=== PATIENT | male | born 1980 | race Caucasian/White ===

== ENCOUNTER 2017-02-19 19:15 | Inpatient (IN) | payer OTHER ==
[2017-02-19 19:55] VITALS: BMI 25.8
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
[2017-02-19] MEDS ORDERED: MENTHOL/PHENOL 1 EACH UD MM PRN (20:30)
[2017-02-19] MEDS ORDERED: IBUPROFEN 400 MG TABLET (FP) PO PRN (20:30)
[2017-02-19] MEDS ORDERED: MAGNESIUM CITRATE 300 ML BOTTLE PO PRN (20:30)
[2017-02-19] MEDS ORDERED: MAG HYDROX/AL HYDROX/SIMETH 30 ML UNIT-DOSE CUP PO PRN (20:30)
[2017-02-19] MEDS ORDERED: chlordiazePOXIDE HCL 25 MG CAPSULE PO PRN (20:30)
[2017-02-19] MEDS ORDERED: NICOTINE POLACRILEX 2 MG GUM BC PRN (20:30)
[2017-02-19] MEDS ORDERED: LOPERAMIDE HCL 2 MG CAPSULE PO PRN (20:30)
[2017-02-19] MEDS ORDERED: guaiFENesin/D-METHORPHAN HB 10 ML UNIT-DOSE CUPS PO PRN (20:30)
[2017-02-19] MEDS ORDERED: ACETAMINOPHEN 325 MG TABLET (FP) PO PRN (20:30)
[2017-02-19] MEDS ORDERED: MAGNESIUM HYDROX 2400MG/30ML ORAL SUSPENSION 30 ML CUP PO PRN (20:30)
[2017-02-19] MEDS ORDERED: P-EPHED 60MG/TRIPROLIDI 2.5MG TABLET PO PRN (20:30)
[2017-02-19] MEDS ORDERED: hydrOXYzine PAMOATE 50 MG CAPSULE (FP) PO PRN (20:30)
[2017-02-19] MEDS: chlordiazePOXIDE HCL 25 MG CAPSULE PO SCH (22:00)
[2017-02-19] MEDS: THIAMINE HCL 100 MG TABLET (FP) PO SCH (22:19)
[2017-02-19 23:22] LABS: URINE APPEARANCE CLEAR; URINE BILIRUBIN NEGATIVE (NEGATIVE); URINE BLOOD NEGATIVE (NEGATIVE); URINE COLOR YELLOW; URINE GLUCOSE (UA) NEGATIVE (NEGATIVE); URINE KETONE NEGATIVE (NEGATIVE); URINE LEUK ESTERASE NEGATIVE (NEGATIVE); URINE NITRITE NEGATIVE (NEGATIVE); URINE UROBILINOGEN NEGATIVE E.U./dl (0.2-1.0)
[2017-02-19 23:23] LABS: URINE PROTEIN 1+ (NEGATIVE)
[2017-02-19 23:39] LABS: URINE MUCUS MODERATE; URINE RBC 4 /hpf (0-3); URINE WBC <1 /hpf (3-5)
[2017-02-20] MEDS: chlordiazePOXIDE HCL 25 MG CAPSULE PO SCH ×4 (05:30→22:25)
[2017-02-20 09:46] LABS: MCH 29.1 pg (25.7-33.7); MCHC 33.1 g/dl (32.0-35.9); PLATELET COUNT 210 K/MM3 (134-434)
--- NOTE | 2017-02-20 10:11 | EKG ---
Test Reason : Blood Pressure : / mmHG Vent. Rate : 078 BPM Atrial Rate : 078 BPM P-R Int : 142 ms QRS Dur : 108 ms QT Int : 402 ms P-R-T Axes : 048 062 038 degrees QTc Int : 458 ms SINUS RHYTHM WITH MARKED SINUS ARRHYTHMIA OTHERWISE NORMAL ECG NO PREVIOUS ECGS AVAILABLE Confirmed by ANN-MARIE WARE, SHERIDAN ([id number]) on 02/20/2017 10:10:59 AM Referred By: Angel Arguelles Confirmed By:SHERIDAN JACOBSEN MD
[2017-02-20 10:23] LABS: ALBUMIN 3.2 g/dl (3.4-5.0); ALK PHOS 97 U/L (45-117); ANION GAP 10 (8-16); BILIRUBIN,TOTAL 1.3 mg/dL (0.2-1.0); CALCIUM 8.5 mg/dL (8.5-10.1); CO2 27 mmol/L (21-32); CREATININE 0.9 mg/dL (0.7-1.3); GLUCOSE,RANDOM 91 mg/dL (74-106); SGOT/AST 22 U/L (15-37); SGPT/ALT 47 U/L (12-78); TOT PROT 6.3 g/dl (6.4-8.2)
[2017-02-20] MEDS: PRENATAL VITAMINS W/ FOLIC ACID TABLET (FP) PO SCH (10:39)
--- NOTE | 2017-02-20 11:04 | PN ---
S CIWA - CIWA Score Nausea/Vomitin-No Nausea/No Vomiting Muscle Tremors: 4-Moderate,w/Arms Extend Anxiety: 3 Agitation: 4-Moderately Restless Paroxysmal Sweats: 3 Orientation: 0-Oriented Tacttile Disturbances: 0-None Auditory Disturbances: 0-None Visual Disturbances: 0-None Headache: 1-Very Mild CIWA-Ar Total Score: 15 BHS Progress Note (SOAP) Subjective: sweats chills agitation interrupted sleep nausea Objective: 02/20/17 11:03 Vital Signs Temperature 95.9 F L 02/20/17 10:02 Pulse Rate 70 02/20/17 10:02 Respiratory Rate 18 02/20/17 10:02 Blood Pressure 158/75 02/20/17 10:02 O2 Sat by Pulse Oximetry (%) Laboratory Tests 02/19/17 02/20/17 02/20/17 21:25 07:00 07:00 WBC 7.0 RBC 4.67 Hgb 13.6 Hct 41.1 MCV 88.0 MCHC 33.1 RDW 15.0 Plt Count 210 MPV 10.0 Sodium 141 Potassium 3.9 Chloride 104 Carbon Dioxide 27 Anion Gap 10 BUN 15 Creatinine 0.9 Creat Clearance w eGFR > 60 Random Glucose 91 Calcium 8.5 Total Bilirubin 1.3 H AST 22 ALT 47 Alkaline Phosphatase 97 Total Protein 6.3 L Albumin 3.2 L Urine Color Yellow Urine Appearance Clear Urine pH 6.0 Ur Specific [place] 1.031 Urine Protein 1+ H Urine Glucose (UA) Negative Urine Ketones Negative Urine Blood Negative Urine Nitrite Negative Urine Bilirubin Negative Urine Urobilinogen Negative Ur Leukocyte Esterase Negative Urine RBC 4 Urine WBC <1 Ur Epithelial Cells Rare Urine Mucus Moderate awake/alert ambulating no acute distress Assessment: 02/20/17 11:03 withdrawal sx Plan: continue detox increase fluids
--- NOTE | 2017-02-20 13:22 | CONSULT ---
[facility] Psychiatric Consult - Data Date of interview: 02/20/17 Admission source: [facility] Identifying data: First admission to [facility] for this 36 y/o [place]-born male seeking detox treatment for alcohol dependence.Patient is single without children,domiciled and employed. Substance Abuse History: - Smoking Cessation. Smoking history: Former smoker. Have you smoked in the past 12 months: No. Initiated information on smoking cessation: No. - Substance & Tx. History. Hx Alcohol Use: Yes. Hx Substance Use: No. Substance Use Type: Alcohol. Hx Substance Use Treatment: No. - Substances Abused. BEER. Route: Oral. Frequency: 1-2 times per week. Amount used: 30 24 OZ CANS/ D. Age of first use: 18. Date of Last Use: . Confirmed by patient. Medical History: Patient endorses good general health. Psychiatric History: Patient denies. Physical/Sexual Abuse/Trauma History: Patient denies. Additional Comment: Drug Screen Negative: Yes.Noted. Mental Status Exam - Mental Status Exam Alert and Oriented to: Time, Place, Person Cognitive Function: Good Patient Appearance: Well Groomed Mood: Hopeful, Euthymic Affect: Appropriate, Normal Range Patient Behavior: Fatigued, Appropriate, Cooperative Speech Pattern: Clear, Appropriate (bilingual) Voice Loudness: Normal Thought Process: Intact, Goal Oriented Thought Disorder: Not Present Hallucinations: Denies Suicidal Ideation: Denies Homicidal Ideation: Denies Insight/Judgement: Fair Sleep: Well Appetite: Good Muscle strength/Tone: Normal Gait/Station: Normal Psychiatric Findings - Problem List ([place] 1, 2,3) (1) Alcohol dependence with uncomplicated withdrawal Current Visit: Yes Status: Acute - Initial Treatment Plan Initial Treatment Plan: Psychoeducation.Detoxification.Observation.
[2017-02-20] MEDS: diphenhydrAMINE HCL 50 MG CAPSULE PO PRN (22:25)
[2017-02-20] MEDS: THIAMINE HCL 100 MG TABLET (FP) PO SCH (22:26)
[2017-02-21] MEDS: chlordiazePOXIDE HCL 25 MG CAPSULE PO SCH ×3 (05:56→17:57)
--- NOTE | 2017-02-21 10:45 | PN ---
[facility] CIWA - CIWA Score Nausea/Vomitin-No Nausea/No Vomiting Muscle Tremors: 4-Moderate,w/Arms Extend Anxiety: 2 Agitation: 3 Paroxysmal Sweats: 3 Orientation: 0-Oriented Tacttile Disturbances: 0-None Auditory Disturbances: 0-None Visual Disturbances: 0-None Headache: 2-Mild CIWA-Ar Total Score: 14 S Progress Note (SOAP) Subjective: headache sweats interrupted sleep Objective: 02/21/17 10:41 Vital Signs Temperature 97.9 F 02/21/17 10:38 Pulse Rate 90 02/21/17 10:38 Respiratory Rate 16 02/21/17 10:38 Blood Pressure 127/68 02/21/17 10:38 O2 Sat by Pulse Oximetry (%) Laboratory Tests 02/19/17 02/20/17 02/20/17 21:25 07:00 07:00 WBC 7.0 RBC 4.67 Hgb 13.6 Hct 41.1 MCV 88.0 MCHC 33.1 RDW 15.0 Plt Count 210 MPV 10.0 Sodium 141 Potassium 3.9 Chloride 104 Carbon Dioxide 27 Anion Gap 10 BUN 15 Creatinine 0.9 Creat Clearance w eGFR > 60 Random Glucose 91 Calcium 8.5 Total Bilirubin 1.3 H AST 22 ALT 47 Alkaline Phosphatase 97 Total Protein 6.3 L Albumin 3.2 L Urine Color Yellow Urine Appearance Clear Urine pH 6.0 Ur Specific [place] 1.031 Urine Protein 1+ H Urine Glucose (UA) Negative Urine Ketones Negative Urine Blood Negative Urine Nitrite Negative Urine Bilirubin Negative Urine Urobilinogen Negative Ur Leukocyte Esterase Negative Urine RBC 4 Urine WBC <1 Ur Epithelial Cells Rare Urine Mucus Moderate RPR Titer 02/20/17 07:00 WBC RBC Hgb Hct MCV MCHC RDW Plt Count MPV Sodium Potassium Chloride Carbon Dioxide Anion Gap BUN Creatinine Creat Clearance w eGFR Random Glucose Calcium Total Bilirubin AST ALT Alkaline Phosphatase Total Protein Albumin Urine Color Urine Appearance Urine pH Ur Specific [place] Urine Protein Urine Glucose (UA) Urine Ketones Urine Blood Urine Nitrite Urine Bilirubin Urine Urobilinogen Ur Leukocyte Esterase Urine RBC Urine WBC Ur Epithelial Cells Urine Mucus RPR Titer Nonreactive awake/alert ambulating no acute distress Assessment: 02/21/17 10:44 withdrawal sx Plan: continue detox increase fluids motrin/tylenol prn
[2017-02-21] MEDS: PRENATAL VITAMINS W/ FOLIC ACID TABLET (FP) PO SCH (11:01)
[2017-02-21] MEDS: THIAMINE HCL 100 MG TABLET (FP) PO SCH (22:34)
[2017-02-21] MEDS: chlordiazePOXIDE 5 MG CAPSULE PO SCH (22:35)
[2017-02-21] MEDS: diphenhydrAMINE HCL 50 MG CAPSULE PO PRN (22:35)
[2017-02-22] MEDS: chlordiazePOXIDE 5 MG CAPSULE PO SCH ×3 (05:38→17:18)
[2017-02-22] MEDS: PRENATAL VITAMINS W/ FOLIC ACID TABLET (FP) PO SCH (10:49)
--- NOTE | 2017-02-22 11:21 | PN ---
BHS Progress Note (SOAP) Subjective: feeling better sweats Objective: 02/22/17 11:20 Vital Signs Temperature 98.2 F 02/22/17 10:15 Pulse Rate 85 02/22/17 10:15 Respiratory Rate 18 02/22/17 10:15 Blood Pressure 127/70 02/22/17 10:15 O2 Sat by Pulse Oximetry (%) awake/alert ambulating no acute distress Assessment: 02/22/17 11:21 withdrawal sx Plan: continue detox increase fluids d/c in am
[2017-02-22] MEDS: THIAMINE HCL 100 MG TABLET (FP) PO SCH (22:57)
[2017-02-22] MEDS: chlordiazePOXIDE HCL 10 MG CAPSULE PO SCH (22:57)
[2017-02-22] MEDS: diphenhydrAMINE HCL 50 MG CAPSULE PO PRN (22:57)
[2017-02-23] MEDS: chlordiazePOXIDE HCL 10 MG CAPSULE PO SCH (05:36)
[2017-02-23 07:04] VITALS: BP 116/69; PULSE 59; TEMP 97.2
--- NOTE | 2017-02-23 17:07 | DS ---
[facility] Detox Discharge Summary Admission Date: 02/19/17 Discharge Date: 02/23/17 - History Present History: Alcohol Dependence Additional Comments: ADVISED PATIENT TO FOLLOW-UP WITH [facility] / REHAB MEDICAL PROVIDER AFTER DISCHARGE FROM DETOX FOR GENERAL MEDICAL ASSESSMENT AND FOR ABNORMAL ADMISSION LAB VALUES. Pertinent Past History: Depression, anxiety. - Physical Exam Results Vital Signs: Vital Signs Temperature 97.2 F L 02/23/17 06:00 Pulse Rate 59 L 02/23/17 06:00 Respiratory Rate 18 02/23/17 06:00 Blood Pressure 116/69 02/23/17 06:00 O2 Sat by Pulse Oximetry (%) Pertinent Admission Physical Exam Findings: WITHDRAWAL SYMPTOMS. Laboratory Last Values WBC 7.0 K/mm3 (4.0-10.0) 02/20/17 07:00 RBC 4.67 M/mm3 (4.00-5.60) 02/20/17 07:00 Hgb 13.6 GM/dL (11.7-16.9) 02/20/17 07:00 Hct 41.1 % (35.4-49) 02/20/17 07:00 MCV 88.0 fl (80-96) 02/20/17 07:00 MCHC 33.1 g/dl (32.0-35.9) 02/20/17 07:00 RDW 15.0 % (11.9-15.9) 02/20/17 07:00 Plt Count 210 K/MM3 (134-434) 02/20/17 07:00 MPV 10.0 fl (7.5-11.1) 02/20/17 07:00 Sodium 141 mmol/L (136-145) 02/20/17 07:00 Potassium 3.9 mmol/L (3.5-5.1) 02/20/17 07:00 Chloride 104 mmol/L (98-107) 02/20/17 07:00 Carbon Dioxide 27 mmol/L (21-32) 02/20/17 07:00 Anion Gap 10 (8-16) 02/20/17 07:00 BUN 15 mg/dL (7-18) 02/20/17 07:00 Creatinine 0.9 mg/dL (0.7-1.3) 02/20/17 07:00 Creat Clearance w eGFR > 60 (>60) 02/20/17 07:00 Random Glucose 91 mg/dL (74-106) 02/20/17 07:00 Calcium 8.5 mg/dL (8.5-10.1) 02/20/17 07:00 Total Bilirubin 1.3 mg/dL (0.2-1.0) H 02/20/17 07:00 AST 22 U/L (15-37) 02/20/17 07:00 ALT 47 U/L (12-78) 02/20/17 07:00 Alkaline Phosphatase 97 U/L (45-117) 02/20/17 07:00 Total Protein 6.3 g/dl (6.4-8.2) L 02/20/17 07:00 Albumin 3.2 g/dl (3.4-5.0) L 02/20/17 07:00 Urine Color Yellow 02/19/17 21:25 Urine Appearance Clear 02/19/17 21:25 Urine pH 6.0 (5.0-8.0) 02/19/17 21:25 Ur Specific [place] 1.031 (1.001-1.035) 02/19/17 21:25 Urine Protein 1+ (NEGATIVE) H 02/19/17 21:25 Urine Glucose (UA) Negative (NEGATIVE) 02/19/17 21:25 Urine Ketones Negative (NEGATIVE) 02/19/17 21:25 Urine Blood Negative (NEGATIVE) 02/19/17 21:25 Urine Nitrite Negative (NEGATIVE) 02/19/17 21:25 Urine Bilirubin Negative (NEGATIVE) 02/19/17 21:25 Urine Urobilinogen Negative E.U./dl (0.2-1.0) 02/19/17 21:25 Ur Leukocyte Esterase Negative (NEGATIVE) 02/19/17 21:25 Urine RBC 4 /hpf (0-3) 02/19/17 21:25 Urine WBC <1 /hpf (3-5) 02/19/17 21:25 Ur Epithelial Cells Rare /hpf (FEW) 02/19/17 21:25 Urine Mucus Moderate 02/19/17 21:25 RPR Titer Nonreactive (NONREACTIVE) 02/20/17 07:00 LABS NOTED. - Treatment Hospital Course: Detox Protocol Followed, Detoxed Safely, Responded well, Discharged Condition Good Patient has Accepted a Rehab Referral to: NO - PT. ELECTING TO PURSUE OUTPATIENT DAY PROGRAM. - Medication Discharge Medications: Ambulatory Orders NK [No Known Home Medication] 02/19/17 - Diagnosis (1) Alcohol dependence with uncomplicated withdrawal Status: Acute - AMA Did Patient Leave Against Medical Advice: No
== END 2017-02-23 09:52 | disposition home or self-care (01) | DRG 775 ==
LOC: YASAS 19:15 → Y6N 20:48
PROVIDERS: ADMIT Internal Medicine Addiction Medicine; ATTEND Internal Medicine Addiction Medicine
PROC: HZ2ZZZZ Detoxification Services for Substance Abuse Treatment (ICD-10-PCS; principal; 2017-02-23)
DX: F10.230 Alcohol dependence with withdrawal, uncomplicated (principal)
CPT/HCPCS: 36415; 71020-TC; 80053; 81003; 81015; 85027; 86593; 93005; 93010